=== PATIENT | female | born 1960 | race Caucasian/White ===

== ENCOUNTER 2017-04-09 03:13 | Inpatient (IN) ==
--- NOTE | 2017-04-07 14:53 | EKG Report ---
Test Performed on : 04/07/2017 2:06:53 PM Test Reason : PAT Blood Pressure : / mmHG Vent. Rate : 059 BPM Atrial Rate : 059 BPM P-R Int : 154 ms QRS Dur : 070 ms QT Int : 400 ms P-R-T Axes : 082 074 053 degrees QTc Int : 396 ms Sinus bradycardia. Otherwise normal ECG No previous ECGs available Confirmed by David Awan MD ([id number]) on 04/08/2017 3:18:50 PM
[2017-04-07 14:56] LABS: MANUAL DIFF NEEDED? NO
[2017-04-07 15:00] LABS: BASO% 1.3 % (0.0-0.8); EOS# 0.49 X1000 (0.0-0.7); EOS% 4.6 % (0.0-10.0); HEMATOCRIT 42.1 % (37.0-47.0); HEMOGLOBIN 14.6 g/dL (12.0-16.0); IMM GRAN# 0.02 X1000 (0.0-0.04); IMM GRAN% 0.2 % (0.0-0.5); LYMPH# 2.73 X1000 (1.2-3.4); LYMPH% 25.7 % (20.5-51.1); MCH 32.2 PG (27-31); MCHC 34.7 g/dL (33-37); MCV 92.7 FL (81-99); MONO# 1.09 X1000 (0.11-0.59); MONO% 10.3 % (1.7-9.3); MPV 9.5 FL (7.4-10.4); NEUT% 57.9 % (42.2-75.2); PLT 433 X1000 (130-400); RBC 4.54 XMIL (4.2-5.4)
[2017-04-07 15:29] LABS: AGAP 13; BUN 17 mg/dL (8-22); CALCIUM 9.4 mg/dL (8.8-10.2); CHLORIDE 101 mmol/L (98-107); COSMO 283; POTASSIUM 3.7 mmol/L (3.5-5.1); SODIUM 141 mmol/L (136-145); TCO2 27 mmol/L (25-35)
[2017-04-09] MEDS ORDERED: PEPCID ONE (11:22)
[2017-04-09] MEDS ORDERED: REGLAN ONE (11:22)
[2017-04-09] MEDS ORDERED: INVANZ 1 GM/NS 1 GM/50 ML IVPB ONE (11:23)
[2017-04-09] MEDS ORDERED: LR 1,000 ML ONE (11:23)
[2017-04-09] MEDS ORDERED: ENTEREG ONE (11:28)
[2017-04-09] MEDS ORDERED: SODIUM CHLORIDE 0.9% 10 ML ONE ×3 (12:13→15:39)
[2017-04-09] MEDS ORDERED: EXPAREL 1.3% ONE (12:13)
[2017-04-09] MEDS ORDERED: MARCAINE 0.25% PF ONE (12:15)
[2017-04-09] MEDS ORDERED: VERSED ONE ×2 (12:16→15:10)
[2017-04-09 13:56] LABS: URINE MICRO REVIEW NEEDED? NO; URINE SOURCE CATH
[2017-04-09 14:00] LABS: BILIRUBIN URINE NEGATIVE (NEGATIVE); BLOOD URINE NEGATIVE (NEGATIVE); COLOR YELLOW; GLUCOSE URINE NEGATIVE (NEGATIVE); LEUKOCYTES URINE NEGATIVE (NEGATIVE); NITRITE URINE NEGATIVE (NEGATIVE); PROTEIN URINE NEGATIVE (NEGATIVE); SP GRAVITY URINE 1.019; TURBIDITY URINE CLEAR (CLEAR); UROBILINOGEN URINE NORMAL (NORMAL)
[2017-04-09 14:02] LABS: UR EPITHELIAL CELLS <10 /HPF (<10); URINE BACTERIA NEGATIVE /HPF; URINE WBC <10 /HPF (<10)
[2017-04-09] MEDS ORDERED: NS 1,000 ML ONE (15:00)
[2017-04-09] MEDS ORDERED: FENTANYL ONE (15:09)
[2017-04-09] MEDS ORDERED: DIPRIVAN 1% ONE (15:10)
[2017-04-09] MEDS: MORPHINE ONE ×3 (15:19→15:38)
[2017-04-09] MEDS ORDERED: ZOFRAN ONE (15:39)
[2017-04-09] MEDS ORDERED: NORCURON ONE (15:39)
[2017-04-09] MEDS ORDERED: NEOSTIGMINE ONE (15:39)
[2017-04-09] MEDS ORDERED: ROBINUL ONE (15:39)
[2017-04-09] MEDS ORDERED: XYLOCAINE-MPF 2% ONE (15:39)
[2017-04-09] MEDS ORDERED: LR 2,000 ML ONE (15:40)
[2017-04-09] MEDS ORDERED: OFIRMEV 1000 MG/ISOTONIC SOLN 1,000 MG/100 ML BOTTLE ONE (15:40)
[2017-04-09] MEDS ORDERED: QUELICIN (DOSE) ONE (15:40)
[2017-04-09] MEDS ORDERED: DECADRON ONE (15:40)
[2017-04-09] MEDS: PHENERGAN ONE ×2 (15:49→16:09)
[2017-04-09] MEDS ORDERED: LR 500 ML ONE (15:50)
--- NOTE | 2017-04-09 16:32 | OPERATIVE NOTE ---
PROCEDURE DATE: 04/09/2017 PROCEDURE: Low anterior sigmoid colon resection. SURGEON: Del Chadwick MD SPECIAL WARFARE OPERATOR: MD Dr. Curtis Mckeon assisted in exposure, resection, and anastomosis. PREOPERATIVE DIAGNOSIS: Sigmoid stricture. POSTOPERATIVE DIAGNOSIS: Sigmoid stricture. FINDINGS: The sigmoid appeared to be kinked on itself, which is probably the cause of the stricture. DESCRIPTION OF PROCEDURE: Satisfactory general endotracheal anesthesia was achieved, the patient was placed in Yaya stirrups. The abdomen was prepped and draped in a sterile fashion. We made an incision at the umbilicus down to the pubis in the area of the old scar. We carried our incision through the midline fascia, entering the abdominal cavity. We palpated the area of the sigmoid and it appeared to be adhesed in an S-shape, which could be the source of the stricture. The uterus was missing. The ovaries were missing. We then placed our Bookwalter retractor and placed the patient in Trendelenburg, reflected the small bowel cephalad. We then used the electrocautery to incise the white line of Toldt down into the pelvis to the rectum. We did the same on the medial side. We incised the adhesion that was kinking the sigmoid and thereby straightening it to get out somewhat. We chose a place in the proximal sigmoid just above the pelvic brim that would come into the pelvis easily to the rectum. We cleaned off the colon there, stapled it with a KALE 60 mm blue cartridge. We went distally into the proximal rectum and cleaned off the colon at that point. We then used the LigaSure to divide the mesentery all the way to the sigmoid vessels. We clamped and divided the sigmoid vessels with Samara clamps and divided them and suture ligated the proximal vessels with 2-0 silk suture ligature. We then laid the sigmoid up onto the anterior abdominal wall and we were able to bring the proximal sigmoid down to the rectum to make this hand sewn anastomosis. We then placed 3-0 silks in a Lembert fashion in the posterior seromuscular layer. We then amputated the sigmoid. The rectum appeared to be wide open and no evidence of stricture formation was seen there. We then took off the staple line from the proximal colon as well and again, it spread open easily and without evidence of stricture. We then used a 3-0 Polysorb running locking stitch for the posterior layer and changed to a [place] stitch anteriorly. The final layer was then 3-0 silks in a Lembert fashion anteriorly, this thereby completed the 2 layered anastomosis. We rid ourselves of the contaminated instruments, changed gloves, and the sucker tip at this point, we irrigated out the pelvis. We then placed a couple of 3-0 silks from the mesentery to the retroperitoneum to close the hole behind the anastomosis. There was no tension on the anastomosis. Again, we irrigated it out. We then removed our laps, took our retractors out, allowed the small bowel to fall into the pelvis. We closed the peritoneum with a 2-0 chromic. We closed the fascia with a running #2 Prolene, irrigated out the subcutaneous tissue and closed the skin with mark. Sterile dressing was applied. She tolerated it well, was sent to the recovery room in satisfactory condition. cc: MD Nathaniel Morales MD
[2017-04-09] MEDS ORDERED: MORPHINE ONE (17:38)
[2017-04-09] MEDS ORDERED: ZOFRAN IV PRN (18:05)
[2017-04-09] MEDS: NS 1,000 ML IV SCH (18:35)
[2017-04-09] MEDS: OFIRMEV 1000 MG/ISOTONIC SOLN 1,000 MG/100 ML BOTTLE IV SCH (21:56)
[2017-04-09] MEDS: ENTEREG PO SCH (21:57)
[2017-04-09] MEDS: PERIDEX MT SCH (21:57)
[2017-04-09] MEDS: LOVENOX SUBQ SCH (21:57)
[2017-04-10] MEDS: BUPRENEX IV PRN ×4 (00:15→18:55)
[2017-04-10] MEDS: OFIRMEV 1000 MG/ISOTONIC SOLN 1,000 MG/100 ML BOTTLE IV SCH ×4 (02:35→21:51)
[2017-04-10] MEDS: NS 1,000 ML IV SCH ×3 (02:35→18:57)
[2017-04-10] MEDS: PRILOSEC PO SCH (06:13)
[2017-04-10 06:17] LABS: BASO% 0.1 % (0.0-0.8); HEMATOCRIT 41.2 % (37.0-47.0); HEMOGLOBIN 14.6 g/dL (12.0-16.0); IMM GRAN# 0.05 X1000 (0.0-0.04); IMM GRAN% 0.2 % (0.0-0.5); LYMPH# 1.23 X1000 (1.2-3.4); LYMPH% 5.4 % (20.5-51.1); MCH 32.3 PG (27-31); MCHC 35.4 g/dL (33-37); MCV 91.2 FL (81-99); MONO# 1.63 X1000 (0.11-0.59); MONO% 7.2 % (1.7-9.3); MPV 9.9 FL (7.4-10.4); NEUT% 87.1 % (42.2-75.2); PLT 443 X1000 (130-400); RBC 4.52 XMIL (4.2-5.4)
[2017-04-10 06:48] LABS: AGAP 16; BUN 14 mg/dL (8-22); CALCIUM 8.8 mg/dL (8.8-10.2); CHLORIDE 100 mmol/L (98-107); COSMO 275; SODIUM 137 mmol/L (136-145); TCO2 21 mmol/L (25-35)
[2017-04-10 07:47] LABS: MANUAL DIFF NEEDED? NO
[2017-04-10] MEDS: PERIDEX MT SCH ×2 (09:05→21:52)
[2017-04-10] MEDS: ENTEREG PO SCH ×2 (09:05→21:51)
[2017-04-10] MEDS ORDERED: PROTONIX IV ONE (17:58)
[2017-04-10] MEDS ORDERED: SODIUM CHLORIDE 0.9% INJ ONE (17:58)
[2017-04-10] MEDS: LOVENOX SUBQ SCH (21:52)
[2017-04-11] MEDS: BUPRENEX IV PRN (00:42)
[2017-04-11] MEDS: OFIRMEV 1000 MG/ISOTONIC SOLN 1,000 MG/100 ML BOTTLE IV SCH ×4 (01:24→20:30)
[2017-04-11] MEDS: NS 1,000 ML IV SCH ×2 (04:00→05:54)
[2017-04-11] MEDS: PRILOSEC PO SCH ×2 (05:54→06:25)
[2017-04-11] MEDS: ENTEREG PO SCH ×3 (07:51→20:31)
[2017-04-11] MEDS: PERIDEX MT SCH ×3 (07:52→20:31)
--- NOTE | 2017-04-11 10:04 | Diag Imaging Result Document ---
PROCEDURE NAME: ABDOMEN FLAT/UPRIGHT - 04/11/2017 FLAT AND UPRIGHT ABDOMEN: FINDINGS: There are surgical skin clips over the lower abdomen and pelvis in the midline. There is gas in the abdomen, presumably secondary to recent laparotomy. There is gas throughout the colon. The small bowel and stomach are not distended. Compared to 03/20/2017, the postsurgical changes were not previously present. There is more colonic gas than there was. IMPRESSION: 1. Possibility of mild ileus cannot be excluded. 2. No evidence of small bowel obstruction. 3. Postsurgical pneumoperitoneum.
[2017-04-11] MEDS ORDERED: NS 1,000 ML IV SCH (13:48)
[2017-04-11 14:30] LABS: MANUAL DIFF NEEDED? NO
[2017-04-11 14:39] LABS: BASO% 0.5 % (0.0-0.8); EOS% 0.8 % (0.0-10.0); HEMATOCRIT 34.3 % (37.0-47.0); HEMOGLOBIN 11.4 g/dL (12.0-16.0); IMM GRAN# 0.02 X1000 (0.0-0.04); IMM GRAN% 0.2 % (0.0-0.5); LYMPH# 2.91 X1000 (1.2-3.4); LYMPH% 22.1 % (20.5-51.1); MCH 31.6 PG (27-31); MCHC 33.2 g/dL (33-37); MONO# 1.42 X1000 (0.11-0.59); MONO% 10.8 % (1.7-9.3); MPV 9.6 FL (7.4-10.4); NEUT% 65.6 % (42.2-75.2); PLT 328 X1000 (130-400); RBC 3.61 XMIL (4.2-5.4)
[2017-04-11] MEDS: LOVENOX SUBQ SCH (20:31)
[2017-04-12] MEDS: OFIRMEV 1000 MG/ISOTONIC SOLN 1,000 MG/100 ML BOTTLE IV SCH ×4 (01:45→20:04)
[2017-04-12] MEDS: PERIDEX MT SCH ×2 (10:04→20:04)
--- NOTE | 2017-04-12 10:28 | PROGRESS NOTE ---
DATE: 04/12/2017 SUBJECTIVE: She feels well. She had a bowel movement. She is voiding. She is not requiring pain medicine. She is ambulating. OBJECTIVE: Vital Signs: She is afebrile. No tachycardia. Blood pressure 100/52. Abdomen: Her incisions are clean, dry, and intact. Her dressing is in place with minimal old-appearing serosanguineous drainage and nondistended and appropriately tender. PLAN: She has had return of bowel function. She seems to be tolerating her diet. We will continue this, monitor her pain today, and plan for her possibly home tomorrow. I have hep- locked, stopped her Entereg, and she is on prophylactic Lovenox. We will continue to follow along. cc: MD Del Lewis MD
[2017-04-12] MEDS: LOVENOX SUBQ SCH (20:04)
[2017-04-12] MEDS ORDERED: TUMS PO PRN (23:20)
[2017-04-13] MEDS: OFIRMEV 1000 MG/ISOTONIC SOLN 1,000 MG/100 ML BOTTLE IV SCH (02:18)
[2017-04-13] MEDS: PRILOSEC PO SCH ×2 (06:43→07:22)
[2017-04-13 08:28] VITALS: BP 148/83
--- NOTE | 2017-04-13 14:46 | PROGRESS NOTE ---
DATE: 04/13/2017 SUBJECTIVE: Feels well. Pain is controlled without narcotic pain medication. She is having bowel movements, voiding, tolerating a diet and ambulating without difficulty. OBJECTIVE: General: No fevers. Cardiac: No tachycardia. Abdomen: Soft, nontender, nondistended. Incision is clean, dry, and intact without erythema. ASSESSMENT: This is a 56-year-old female, status post low anterior resection. She is doing very well. Plan for her to go home today. We discussed signs and symptoms of postoperative complication, fevers, nausea, vomiting, worsening abdominal pain, redness of her incision. She will call if she develops any these. Otherwise, she will see Dr. Chadwick as scheduled in the next week for staple removal. I have given her a prescription for [place]. Colace. She takes MiraLAX at home and I have told her to continue this, and Zofran. She will continue taking her other home medications. cc: MD Del Lewis MD
--- NOTE | 2017-04-24 08:55 | DISCHARGE SUMMARY ---
ADMISSION DATE: 04/09/2017 DISCHARGE DATE: 04/13/2017 PRIMARY DISCHARGE DIAGNOSIS: Stricture in the colon secondary to diverticular disease. PRIMARY PROCEDURE: Sigmoid colon resection. HISTORY: This was a 56-year-old lady sent by Dr. Edward because of a stricture in her sigmoid colon felt to be due to diverticular disease. It was quite difficult to even pass a scope so she was referred for evaluation. Following her outpatient prep, she was admitted on the , underwent the lower anterior sigmoid colon resection on the . Postoperative course was rather unremarkable. She did undergo a tap block which helped provide pain relief. She complained about some chest discomfort and we checked cardiac enzymes which were okay. We put her on Protonix IV which helped relieve her symptoms. We removed her Yi on the second postoperative day, started her on clear liquids on the third postoperative day which she tolerated. By the , she was taking p.o. satisfactorily. Her bowels had moved. She was ambulatory. Her wound was fine. It was felt she could be discharged home. Dr. Wheeler discharged her with a prescription for [employer] and Colace. She will take MiraLAX at home as needed. She will return to the office in followup. cc: MD Nathaniel Morales MD
== END 2017-04-13 10:25 | disposition home or self-care (01) ==
LOC: SURHOLD 03:13 → 4N 17:40
PROVIDERS: ADMIT Surgery; ATTEND Surgery

== ENCOUNTER 2017-05-30 16:53 | Inpatient (IN) ==
[2017-05-30] MEDS ORDERED: NS 500 ML IV ONE (17:51)
[2017-05-30] MEDS ORDERED: ZOFRAN IV ONE (17:52)
--- NOTE | 2017-05-30 18:20 | PROVIDER DOCUMENTATION ---
HPI-Abdominal Pain/GI Problem - General Chief Complaint: Abdominal Pain Stated Complaint: N/D Time Seen by Provider: 05/30/17 17:19 Source: patient Allergies/Adverse Reactions: Patient Allergies Allergy/AdvReac Type Severity Reaction Status Date / Time Latex, Natural Rubber Allergy Unknown Verified 04/09/17 19:12 adhesive tape Allergy RASH Verified 04/07/17 13:45 Home Medications: Home Medication List Medication Instructions Recorded Confirmed Last Taken Type Ciprofloxacin HCl [Cipro] 500 mg PO BID 04/07/17 04/09/17 04/09/17 06:00 History Lactobacillus Acidophilus 1 each PO DAILY 04/07/17 04/09/17 04/07/17 23:00 History [Probiotic] Licorice,Deglycyrrhizinated 1 gm MC TID 04/07/17 04/09/17 04/08/17 07:00 History [Deglycyrrhizinated Licorice] Metronidazole [Flagyl] 250 mg PO TID 04/07/17 04/09/17 04/09/17 06:00 History Omeprazole [Omeprazole] 40 mg PO DAILY 04/07/17 04/09/17 04/08/17 08:00 History Polyethylene Glycol 3350 225 gm PO DAILY 04/07/17 04/09/17 04/07/17 07:00 History [Polyethylene Glycol 3350] - History of Present Illness-ABD Nature of Presenting Problems: PT C/O ABD PAIN AND ALTERNATING SMALL HARD STOOLS AND DIARRHEA STOOL FOR THE PAST 3 DAYS. PT HAS HX OF BOWEL RESECTION ON 04/09 WITHOUT COMPLICATIONS. ALSO C/ O NAUSEA AT PRESENT. Abdominal Pain Onset Location: reports: LLQ Pain Radiation: reports: no radiation Quality of Pain: reports: fullness, sharp Severity in ED: reports: moderate Onset/Duration: reports: 3 days ago Timing: reports: getting worse Activities at Onset: reports: none Exposure to sick contacts?: No Modifying Factors: improves with: nothing Associated Symptoms: reports: constipation, diarrhea, fever/chills, loss of appetite, nausea. denies: chest pain, diaphoresis, EENT symptoms, genitourinary problems, headaches, heartburn, rash, shortness of breath, swelling/mass in abdomen, vomiting Last BM: this afternoon Dark Stools Present?: reports: none noticed Rectal Bleeding: reports: none Rectal Pain: reports: known hemorrhoids Emesis Description: reports: none Bruising or Bleeding Gums?: No Similar Symptoms Previously?: No Recently seen or treated by another doctor?: No Review of Systems - Adult - REVIEW OF SYSTEMS - ADULT Constitutional: reports: chills. denies: fever, night sweats Eyes: reports: no symptoms reported Ears, Nose, Mouth & Throat: reports: no symptoms reported Cardiovascular: reports: no symptoms reported. denies: chest pain, syncope Respiratory: reports: no symptoms reported. denies: cough, dyspnea on exertion , shortness of breath Gastrointestinal: reports: abdominal pain, constipation, diarrhea, nausea. denies: hematemesis, rectal bleeding, vomiting Genitourinary: reports: no symptoms reported. denies: dysuria, discharge, flank pain Musculoskeletal: reports: no symptoms reported. denies: muscle aches, muscle weakness Integumentary: reports: no symptoms reported. denies: rash Neurological: reports: no symptoms reported. denies: dizziness/vertigo, headache/migraines, loss of balance, seizure, syncope Psychiatric: reports: no symptoms reported Endocrine: reports: no symptoms reported Hematologic/Lymphatic: reports: no symptoms reported Allergic/Immunologic: reports: no symptoms reported All Other Systems: Reviewed and Negative Past History - Adult - PAST MEDICAL HISTORY-ADULT Review of Records: reports: Old Records Reviewed, Nursing Assessment Review, Medications Reviewed, Social history reviewed & non-contributory. Major Childhood Illnesses: reports: history unknown Cardiovascular: reports: denies history Respiratory: reports: denies history Gastrointestinal: reports: colitis, diverticulosis, GERD, polyps (barretts esophagus, gastritis), other Obstetrical/Gynecological: reports: other (s/p hysterectomy) Genitourinary: reports: kidney stones Musculoskeletal: reports: denies history Neurological: reports: headaches/migraines Psychiatric: reports: denies history Endocrine/Immune: reports: denies history Other Conditions: reports: denies history - PRIOR SURGERIES/PROCEDURES Surgical/Procedure History: reports: colonoscopy, hysterectomy, , other (lithotripsy, surgeries for crohn's disease.) - IMMUNIZATION STATUS Childhood Immunizations: See Nurse Assessment Flu Vaccine: See Nurse Assessment - SOCIAL HISTORY Smoking: cigarettes Provider spent 3-5 mins advising pt. on dangers of tobacco.: Discussed manners to quit use, and f/u contacts for add'l counseling. Physical Exam-General - PHYSICAL EXAM-ADULT Initial Vital Signs Reviewed: Yes - CONSTITUTIONAL General Appearance: appears well, alert, no apparent distress - EYES Eyes: PERRL/EOMI - HEAD, EARS, NOSE, MOUTH & THROAT HENMT: normocephalic/atraumatic, moist mucous membranes, normal ENT inspection - NECK Neck: non-tender, full range of motion, supple - RESPIRATORY Respiratory: chest non-tender, lungs clear, normal breath sounds. negative: respiratory distress - CARDIOVASCULAR Cardiovascular: normal peripheral pulses, regular rate, rhythm, no edema, no JVD - GASTROINTESTINAL (ABDOMEN) Abdominal Exam: normal bowel sounds, soft, no organomegaly, no pulsatile mass, tenderness (LLQ). negative: abdominal bruit, rigid, rebound, hernia, mass - LYMPHATIC Lymphatic: no adenopathy - MUSCULOSKELETAL Back Exam: normal inspection, no CVA tenderness, no vertebral tenderness Extremity: normal range of motion, non-tender - SKIN Integumentary: normal color, normal turgor, warm/dry. negative: diaphoresis, ecchymosis, jaundice, purpura, rash - NEUROLOGIC Neurologic: grossly normal, no motor/sensory deficits. negative: aphasia, motor weakness - PSYCHIATRIC Psych/Mental Status: normal mood/affect, oriented x 3 Progress - PLAN OF CARE/RESULTS Progress/Plan/Lab Results: Vital Signs - 8 hr 05/30/17 17:01 Temperature 98.1 F Pulse Rate 82 Respiratory Rate 18 Blood Pressure 135/88 O2 Sat by Pulse Oximetry 98 Orders Category Date Time Status Saline Loc NOW Care 05/30/17 17:51 Active NPO Diet 05/30/17 17:[address] ABD/PELVIS W/ IV CONT ONLY [CT] Stat Exams 05/30/17 18:14 Ordered AMYLASE [CHEM] Stat Lab 05/30/17 17:44 Ordered C DIFF TOXIN PL Stat Lab 05/30/17 17:50 Ordered CBC WITH ELECTRONIC DIFF [HEME] Stat Lab 05/30/17 17:44 Ordered COMPREHENSIVE METABOLIC PANEL [CHEM] Stat Lab 05/30/17 17:44 Ordered LIPASE [CHEM] Stat Lab 05/30/17 17:44 Ordered OCCULT BLOOD SCREEN STOOL PL Stat Lab 05/30/17 17:50 Uncollected STOOL CULTURE [RM] Stat Lab 05/30/17 17:[address] W/POSS RFLX CULT [URINALYSIS] Stat Lab 05/30/17 18:15 Ordered WBC STOOL [STOOL] Stat Lab 05/30/17 17:50 Uncollected 0.9% Sodium Chloride Inj [Ns] 500 ml Med 05/30/17 17:51 Active IV 999 mls/hr Ondansetron [Zofran] Med 05/30/17 17:52 Discontinued 4 mg IV NOW ONE Result Diagrams: 05/30/17 17:55 05/30/17 17:55 - REASSESSMENT Reassessment #1 Time Reassessed: 20:04 (DR. CHAU REVIEWED THE PT'S LABS AND IMAGING AND ASSUMED CARE OF PATIENT. PT CONDITION UNCHANGE AT THIS TIME.) Status: unchanged - CT/MRI 1 CT Study: Abdomen Impression: Abnormal (distal colitis posssible stricture) - CHANGE OF SHIFT REPORT (ED Provider) Report Given and Care Transferred to:: DR. CHAU Time of Transfer: 20:05 Items Pending: CT/MRI Results Departure - Departure Date of Disposition Decision: 05/30/17 Time of Disposition Decision: 20:28 DIAGNOSIS: Colitis Disposition: ADMITTED INPATIENT 09 Certified Medical Emergency: Emergent Condition: Fair Referrals and Follow-Ups: Deon Lane MD [Primary Care Provider] - Work Excuses: Return to School/Parent Work - Critical Care Note This patient required my direct & personal management of CC.: No
[2017-05-30 18:30] LABS: MANUAL DIFF NEEDED? NO
[2017-05-30 18:33] LABS: BASO% 0.3 % (0.0-0.8); EOS# 0.04 X1000 (0.0-0.7); EOS% 0.3 % (0.0-10.0); HEMATOCRIT 39.5 % (37.0-47.0); HEMOGLOBIN 13.5 g/dL (12.0-16.0); IMM GRAN# 0.02 X1000 (0.0-0.04); IMM GRAN% 0.1 % (0.0-0.5); LYMPH# 1.63 X1000 (1.2-3.4); LYMPH% 10.9 % (20.5-51.1); MCH 31.3 PG (27-31); MCHC 34.2 g/dL (33-37); MCV 91.4 FL (81-99); MONO# 1.72 X1000 (0.11-0.59); MONO% 11.5 % (1.7-9.3); MPV 9.6 FL (7.4-10.4); NEUT% 76.9 % (42.2-75.2); PLT 361 X1000 (130-400); RBC 4.32 XMIL (4.2-5.4)
[2017-05-30 18:49] LABS: URINE CULTURE PL NEEDED? NO
[2017-05-30 19:02] LABS: AGAP 15; ALBUMIN 4.3 g/dL (3.5-5.0); ALKALINE PHOSPHATASE 93 U/L (32-104); AMYLASE 42 U/L (20-200); BUN 9 mg/dL (8-22); CALCIUM 9.6 mg/dL (8.8-10.2); CHLORIDE 100 mmol/L (98-107); COSMO 279; GOT 14 U/L (10-30); GPT 11 U/L (10-36); LIPASE 42 U/L (13-60); POTASSIUM 3.2 mmol/L (3.5-5.1); SODIUM 140 mmol/L (136-145); TCO2 25 mmol/L (25-35)
[2017-05-30 19:03] LABS: BILIRUBIN URINE NEGATIVE (NEGATIVE); BLOOD URINE 1+ (NEGATIVE); CLARITY CLEAR (CLEAR); COLOR YELLOW; GLUCOSE URINE NEGATIVE (NEGATIVE); LEUKOCYTES URINE NEGATIVE (NEGATIVE); NITRITE URINE NEGATIVE (NEGATIVE); PROTEIN URINE NEGATIVE (NEGATIVE); SP GRAVITY URINE 1.005; UROBILINOGEN URINE NORMAL
[2017-05-30 19:24] LABS: URINE CAST NONE SEEN /LPF; URINE CRYSTAL NONE SEEN /HPF; URINE EPITHELIAL CELLS <10 /HPF (<10); URINE RBC <10 /HPF (<10); URINE SOURCE CLEAN CATCH; URINE WBC <10 /HPF (<10)
--- NOTE | 2017-05-30 19:59 | Diag Imaging Result Doc PS360 ---
EXAM: CT ABD/PELVIS W/ IV CONT ONLY HISTORY: ABD PAIN, POSS SBO, POST OP COLON RESECT TECHNIQUE: CT of the abdomen with intravenous contrast COMMENT: There is fibrotic change in the posterior costophrenic sulci bilaterally which was also present on 03/20/2017. The liver spleen adrenal glands and pancreas are stable in appearance. The gallbladder is apparently clear. The kidneys are without evidence of hydronephrosis or mass. There is gas in the colon. The small bowel is not distended. There is some thickening of the wall of the descending colon particularly distally. CT of the pelvis with intravenous contrast: Since the previous study of 03/20/2016, there has been resection of a fair amount of the sigmoid colon presumably for diverticulitis. There is some gas in the rectum. The distal portion of the colon and proximal rectum are thickened in appearance particularly around image 173. There may be a stricture in this location. There is no evidence of free fluid or abscess. IMPRESSION: Distal colitis with possible stricture. Electronically signed by Earnest Carvalho 05/30/2017 7:57 PM
[2017-05-30] MEDS ORDERED: MORPHINE IV ONE (20:27)
[2017-05-30] MEDS ORDERED: NS 1,000 ML IV ONE (20:38)
[2017-05-30] MEDS ORDERED: ZOFRAN IV PRN (20:38)
[2017-05-30] MEDS ORDERED: TYLENOL PO PRN (22:43)
[2017-05-30] MEDS ORDERED: LEVAQUIN 500 MG/D5W 500 MG/100 ML IVPB IV SCH (22:45)
[2017-05-30] MEDS ORDERED: SODIUM CHLORIDE 0.9% INJ SCH (23:00)
[2017-05-30] MEDS ORDERED: KLOR-CON PO ONE (23:19)
[2017-05-30] MEDS ORDERED: NS 1,000 ML IV SCH (23:42)
[2017-05-31] MEDS: MORPHINE IV PRN ×5 (00:36→22:58)
[2017-05-31] MEDS: FLAGYL 500 MG/NS 500 MG/100 ML IVPB IV SCH ×4 (01:47→19:59)
[2017-05-31] MEDS: POTASSIUM CHLORIDE 20 MEQ/SWI 20 MEQ/100 ML IVPB IV SCH ×2 (02:57→05:21)
[2017-05-31 06:01] LABS: MANUAL DIFF NEEDED? NO
[2017-05-31 06:02] LABS: BASO% 0.4 % (0.0-0.8); EOS# 0.16 X1000 (0.0-0.7); EOS% 0.9 % (0.0-10.0); HEMATOCRIT 37.2 % (37.0-47.0); HEMOGLOBIN 12.8 g/dL (12.0-16.0); IMM GRAN# 0.04 X1000 (0.0-0.04); IMM GRAN% 0.2 % (0.0-0.5); LYMPH# 1.72 X1000 (1.2-3.4); MCH 32.2 PG (27-31); MCHC 34.4 g/dL (33-37); MCV 93.5 FL (81-99); MONO# 2.23 X1000 (0.11-0.59); MPV 9.8 FL (7.4-10.4); NEUT% 75.5 % (42.2-75.2); PLT 348 X1000 (130-400); RBC 3.98 XMIL (4.2-5.4)
--- NOTE | 2017-05-31 06:15 | HISTORY AND PHYSICAL ---
CHIEF COMPLAINT: Abdominal Pain with Diarrhea HISTORY OF PRESENT ILLNESS: Mrs. Milagros Daniel has a past medical history of GERD, Crohn's, and recent H. pylori infection presented first to [place] ED with left lower quadrant abdominal pain that she states has been burning for the last 2-3 days. She has had a decreased appetite and diarrhea with 2-3 episodes per day. She recently had a sigmoid colon resection back on April 09 that was performed by Dr. Chadwick. She completed her followup appointments with him but states that when she went back to work this week is when her abdominal pain really started x 5 days. She says that she completed amoxicillin and erythromycin antibiotics x20 days and had diarrhea the entire time. Denied any foul smell. Reported that it was black and tarry until yesterday, it appeared white and peace in her stool. She also complains of fever and chills and body aches for the last week. While she was in the ER over at [place], they performed a CT of the abdomen and pelvis which revealed possible distal colitis with possible stricture and she was sent over here for evaluation by the GI service. PAST MEDICAL HISTORY: 1. GERD 2. Crohn's. 3. H. pylori. 4. Kidney stones. 5. Diverticulitis. 6. Carpal tunnel syndrome. SURGICAL HISTORY: 1. Recent sigmoid colon resection in March of this year. 2. . 3. Hysterectomy. 4. Urethral stent. 5. Lithotripsy. SOCIAL HISTORY: The patient reports that she smokes less than half a pack of cigarettes a day. Reports occasional alcohol use, about 1 glass of wine a day. Denies any recreational drug use. FAMILY HISTORY: Mother - cancer diabetes and CAD. Father - hypertension. REVIEW OF SYSTEMS: Ten point review of systems was completed except as what is mentioned above in the HPI. ALLERGIES: Latex, natural rubber, adhesive tape. HOME MEDICATIONS: 1. Tylenol 650 p.r.n. q.6 hours for pain. 2. Lactobacillus 1 tablet p.o. daily. 3. Protonix 40 mg p.o. q.12 hours. PHYSICAL EXAMINATION: VITAL SIGNS: Temperature 98.2 degrees, heart rate 59, respirations 20, blood pressure 132/74, O2 saturation 98 on room air. GENERAL: Ms. Daniel is a pleasant 56-year-old female, who could answer questions appropriately. HEENT: Atraumatic, normocephalic. PERRL. EOMs intact. Mucous membranes dry. NECK: Supple. Trachea midline. No JVD noted. No bruits. CV: Slightly bradycardic at 59. S1-S2 auscultated. No murmurs, gallops, or rubs heard. RESPIRATORY: Lung sounds clear and equal throughout. Respirations nonlabored. No accessory muscle use noted. GI: Abdomen is soft, slightly tender to palpation in the left lower quadrant. She has hyperactive bowel sounds in all 4 quadrants. No abdominal bruit auscultated. NEURO: CN 2-12 intact. Patient was alert oriented x4. MUSCULOSKELETAL: The patient is ambulatory with equal muscle strength throughout. EXTREMITIES: The patient has no clubbing, cyanosis or edema noted. Plus 2 pulses throughout all 4 extremities. SKIN: Warm, dry, intact. No rashes or bruises or diaphoresis noted. LABS: White blood cell count 15, hemoglobin 13.5, hematocrit 39.5, platelets 361,000. Sodium 140, potassium 3.2, chloride 100, BUN 9, creatinine 0.6, glucose 117. IMAGING: CT of the abdomen/pelvis with IV contrast revealed distal colitis with possible stricture. ASSESSMENT AND PLAN: 1. Colitis with leukocytosis. Patient is afebrile. Her white cell count is 15. Blood cultures have been obtained. Flagyl and Levaquin ordered. Stool cultures also ordered. Gastroenterology has been consulted. Morphine for pain management. 2. Possible stricture in the distal colon and proximal rectum, status post recent sigmoid colon resection by Dr. Chadwick. We have reconsulted for further recommendations. 3. Anorexia and dehydration secondary to nausea, vomiting and diarrhea. IV hydration normal saline at 100. Clear liquid diet. Will advance diet once the consults have been completed. Antiemetics have been ordered for nausea. 4. Hyperkalemia. Potassium is 3.2. We have ordered 20 mEq p.o. We will re- evaluate in the morning. 5. Helicobacter pylori. The patient is followed by Dr. Edward. Her treatment regimen has been completed and she states she has a followup appointment July 01 to be re- evaluated for this. 6. Gastroesophageal reflux disease. Continue Protonix p.o. b.i.d. Continue probiotic regimen. 7. Mild hyperglycemia. The patient's serum glucose is 117. Hemoglobin A1c has been ordered and we will re-evaluate in the morning. 8. Diverticulosis. Now, status post sigmoid colon resection. See #2 on Assessment and Plan. Dictated by JASON Mayo for Joel Perea MD cc: JASON Mayo MD Robert C. Walker, MD Manish Arora, MD pt examined, will treat for infectious colitis, r/ro c diff, but will need surgical evaluation APENOT MTDD
[2017-05-31 06:31] LABS: INR 1.04; PTT 25.4 Seconds (22.0-36.0)
[2017-05-31 06:32] LABS: HEMOGLOBIN A1C 5.3 % (4.8-6.0)
[2017-05-31 06:35] LABS: AGAP 11; ALBUMIN 3.7 g/dL (3.5-5.0); ALKALINE PHOSPHATASE 76 U/L (32-104); BUN 8 mg/dL (8-22); CALCIUM 8.7 mg/dL (8.8-10.2); CHLORIDE 104 mmol/L (98-107); COSMO 278; GOT 12 U/L (10-30); GPT 9 U/L (10-36); MAGNESIUM 1.6 mg/dL (1.5-2.7); SODIUM 140 mmol/L (136-145); TCO2 25 mmol/L (25-35); TOTAL PROTEIN 5.9 g/dL (6.3-8.3)
[2017-05-31] MEDS ORDERED: PROTONIX IV SCH (09:00)
[2017-05-31] MEDS: CULTURELLE PO SCH (11:11)
[2017-05-31] MEDS: PROTONIX PO SCH ×2 (11:11→19:59)
[2017-05-31] MEDS: NS 1,000 ML IV SCH ×2 (13:47→22:55)
--- NOTE | 2017-05-31 14:18 | CONSULTATION ---
DATE OF CONSULTATION: 05/31/2017 CHIEF COMPLAINT: Abdominal pain. HISTORY: This is a 56-year-old lady who is almost 2 months after a sigmoid resection for stricture and old diverticular disease. She had done well until this past week. She states the onset of burning discomfort. She also reports diarrhea. She has been on treatment for Helicobacter pylori by Dr. Edward. Because of her symptoms. She has sought medical attention. CT scan suggests some possible thickening of the rectum or distal colon. PAST MEDICAL HISTORY: Pertinent for gastroesophageal reflux, a possible history of Crohn's, Helicobacter pylori, diverticular disease, history of some kidney stones, and carpel tunnel. She has had this recent sigmoid resection. She has had a hysterectomy, lithotripsy, ureteral stent, and a section in the past. She is employed. She does smoke daily. She does drink wine daily. FAMILY HISTORY: Noncontributory. REVIEW OF SYSTEMS: As noted above. MEDICATIONS AT HOME: Include lactobacillus, Protonix, and she has recently been on erythromycin and Amoxil. PHYSICAL EXAMINATION: Vital Signs: She is afebrile. Heart rate 53. Blood pressure 126/69. Respiratory rate 18. Eighteen. Lungs: Bilateral breath sounds. Heart: Regular rhythm. Abdomen: Flat, soft, and not particularly tender. Her wound is healing satisfactorily. ASSESSMENT AND PLAN: Abdominal pain of uncertain etiology. The CT scan suggests some thickening, possible colitis. Will ask Gastroenterology to evaluate her more fully. I will follow along, but I have no other recommendations at this time. cc: Del Chadwick MD
--- NOTE | 2017-05-31 14:22 | PROGRESS NOTE ---
DATE: 05/31/2017 SUBJECTIVE: The patient states that her abdominal pain has improved. She denies having any nausea at this time. OBJECTIVE: Vital Signs: Temperature 97 degrees, blood pressure 129/71, heart rate 62, respirations 18, O2 saturations 98% on room air. General: This is an elderly female, lying in bed, in no acute distress. Head: Normocephalic, atraumatic. Heart: S1, S2. Normal. Regular rate and rhythm. Lungs: Clear to auscultation bilaterally. No wheezing. No rales. No rhonchi. Abdomen: Positive bowel sounds. Soft. Diffuse tenderness. Extremities: No edema. No cyanosis. No calf tenderness. Neurologic: The patient is alert and oriented x3. LABS: White blood cell count 17, hemoglobin 12, hematocrit 37, platelets 348,000. Sodium 140, potassium 4, chloride 104, CO2 25, BUN 8, creatinine 0.7, glucose 101, calcium 8.7, AST 12, ALT 9. ASSESSMENT AND PLAN: 1. colitis with colonic stricture. We will continue on IV antibiotic therapy. Gastroenterology and General Surgery have been consulted for further recommendations. 2. Leukocytosis. Blood cultures and stool cultures are pending. We will continue on IV antibiotic therapy and monitor the trend closely. 3. Deep vein thrombosis prophylaxis. Will start the patient on Lovenox. cc: Milagros Conway MD
[2017-05-31] MEDS: LOVENOX SUBQ SCH (14:24)
--- NOTE | 2017-05-31 16:20 | CONSULTATION ---
DATE OF CONSULTATION: 05/31/2017 REASON FOR CONSULTATION: Colitis, history of recent colon resection. HISTORY OF PRESENT ILLNESS: This is a 56-year-old white female who reports onset of symptoms over the last several weeks. She had a colon resection related to a stricture by Dr. Chadwick in March. She states she went back to work on Friday and started having abdominal pain. By , she was having abdominal pain and diarrhea, and was unable to eat. Her primary swatcher is Dr. Edward. She had called their office and they advised her to take probiotics. She states she was treated recently for Helicobacter pylori, so she has been on several different antibiotics since her colon resection in March. She denies bright red blood in the stool, but reported a dark stool yesterday. She had reported fever and chills. A CT scan showed possible distal colitis with possible stricture. PAST MEDICAL HISTORY: GERD. Reports a history of Crohn's, Helicobacter pylori, kidney stones, diverticulitis, and carpal tunnel syndrome. PAST SURGICAL HISTORY: Recent sigmoid colon resection in March by Dr. Chadwick. section, hysterectomy, urethral stent, and lithotripsy. ALLERGIES: Latex and tape, causing a rash. HOME MEDICATIONS: MiraLAX daily. Omeprazole 40 mg daily. Flagyl 250 three times a day. Probiotic daily. Cipro twice daily. SOCIAL HISTORY: Smokes less than a half a pack of cigarettes daily. Occasional alcohol use. FAMILY HISTORY: Mother had cancer, diabetes, and coronary artery disease. Father had hypertension. REVIEW OF SYSTEMS: Per HPI. PHYSICAL EXAMINATION: Vital Signs: Temperature 97.4 degrees, pulse 62, respirations 18, blood pressure 129/71. General: Patient is awake and alert, in no acute distress. HEENT: Normocephalic, atraumatic. Pupils equal, round, and reactive to light. Sclerae nonicteric. Respiratory: Lungs sound clear bilaterally. Cardiovascular: Regular rate and rhythm. Abdomen: Soft. Tenderness with palpation. Positive bowel sounds. Extremities: No lower extremity edema noted. Pedal pulses present bilaterally. DIAGNOSTIC RESULTS: Laboratory: Hematology - White count 17.21, hemoglobin 12.8, hematocrit 37.2, MCV 93.5, and platelets 348,000. Chemistry - Sodium 140, potassium 4.0, chloride 104, CO2 of 25, BUN 8, creatinine 0.7, glucose 101, total bilirubin 0.20, AST 12, ALT 9, alkaline phosphatase 76, amylase 42, lipase 42. ASSESSMENT AND PLAN: 1. Abdominal pain. 2. Colitis. 3. Recent colon resection. 4. Helicobacter pylori with recent antibiotic therapy. 5. Gastroesophageal reflux disease. PLAN: Continue supportive care. Continue Flagyl, but stop Levaquin for now. Waiting on stool study results. Possibility of Clostridium difficile colitis related to recent antibiotic use. We will continue to follow. Continue IV fluids and p.r.n. medication as needed. Further plans will be made according to her progress. I have discussed this case with Dr. Roach. Thank you for this consultation. Dictated by JASON Hensley for Brennon Roach MD cc: JASON Judd MD
[2017-05-31] MEDS: LEVAQUIN 750 MG/D5W 750 MG/150 ML IVPB IV SCH (22:55)
[2017-06-01] MEDS: FLAGYL 500 MG/NS 500 MG/100 ML IVPB IV SCH ×4 (01:08→20:07)
[2017-06-01 06:29] LABS: HEMATOCRIT 35.8 % (37.0-47.0); HEMOGLOBIN 12.1 g/dL (12.0-16.0); MCH 32.2 PG (27-31); MCHC 33.8 g/dL (33-37); MCV 95.2 FL (81-99); MPV 9.7 FL (7.4-10.4); RBC 3.76 XMIL (4.2-5.4)
[2017-06-01 06:58] LABS: AGAP 10; BUN 6 mg/dL (8-22); CALCIUM 8.6 mg/dL (8.8-10.2); CHLORIDE 103 mmol/L (98-107); COSMO 272; POTASSIUM 3.5 mmol/L (3.5-5.1); SODIUM 137 mmol/L (136-145); TCO2 24 mmol/L (25-35)
[2017-06-01] MEDS: PROTONIX PO SCH ×2 (07:42→09:07)
[2017-06-01] MEDS: CULTURELLE PO SCH ×2 (07:42→09:07)
--- NOTE | 2017-06-01 09:58 | Diag Imaging Result Doc PS360 ---
EXAM: FLAT/UPRIGHT ABD/1 VIEW CHEST HISTORY: abdominal pain TECHNIQUE: Flat and upright abdomen with PA chest COMMENT: There is gas in the colon. There is no evidence of small bowel dilatation or gastric distention. There is no evidence organomegaly or mass. There is a phlebolith in the inferior left pelvis. The appearance of the chest has not changed significantly since 03/20/2017. IMPRESSION: Nonspecific abdomen. No evidence of obstruction. Electronically signed by Earnest Carvalho 06/01/2017 9:56 AM
[2017-06-01] MEDS: NS 1,000 ML IV SCH (13:27)
[2017-06-01] MEDS: LOVENOX SUBQ SCH (13:28)
[2017-06-01] MEDS: BENTYL PO SCH (15:57)
--- NOTE | 2017-06-01 17:17 | PROGRESS NOTE ---
DATE: 06/01/2017 SUBJECTIVE: The patient is resting comfortably in bed. She states that she initially had diarrhea earlier last night, but has since gotten better. OBJECTIVE: Vital Signs: Temperature 98.6 degrees, blood pressure 133/69, heart rate 58, respirations 18, O2 saturations 98% on room air. General: This is an elderly female sitting up in bed, in no acute distress. Head: Normocephalic, atraumatic. Heart: S1, S2. Normal. Regular rate and rhythm. Lungs: Clear to auscultation bilaterally. No wheezing. No rales. No rhonchi. Abdomen: Positive bowel sounds. Soft, nontender, nondistended. Extremities: No edema. No cyanosis. No calf tenderness. Neurological: Patient is alert and oriented x3. LABORATORY: White blood cell count 9.1, hemoglobin 12, hematocrit 35, platelets 320,000. Sodium 137, potassium 3.5, chloride 103, CO2 24, BUN 6, creatinine 0.6, glucose 107. ASSESSMENT AND PLAN: 1. Colitis with colonic narrowing. Continue with IV antibiotic therapy. Further management as per the longitudinal float operator. 2. Leukocytosis, resolved. 3. Deep vein thrombosis prophylaxis. Continue on Lovenox. cc: Milagros Conway MD
--- NOTE | 2017-06-01 17:28 | PROGRESS NOTE ---
DATE: 06/01/2017 SUBJECTIVE: Patient complains of postprandial abdominal pain and abdominal cramps, especially on the left side of the umbilicus. She complains of burning discomfort there. She has had some loose bowel movement especially after eating. She had only eaten some pudding. She denies any fever or chills now and has not had any dysuria, polyuria, or hematuria. Labs reviewed showed improvement in her white count which is 9.15 now, hemoglobin is over 12.1, hematocrit 35.8. BMP is normal. Abdominal x-ray done today was unremarkable. IMPRESSION: Abdominal pain and diarrhea with abnormal CT scan suggestive of possible colitis. Her leukocytosis has improved. I have recommended to continue antibiotic for now. I will switch her PPI from Protonix IV to Prilosec 20 mg p.o. every day. I will start her on Bentyl 10 mg p.o. t.i.d. for abdominal pain and cramps and continue to advance her diet slowly and will follow. cc: Brennon Roach MD
[2017-06-01] MEDS: MORPHINE IV PRN ×2 (17:32→20:08)
[2017-06-01] MEDS: LEVAQUIN 750 MG/D5W 750 MG/150 ML IVPB IV SCH (21:27)
[2017-06-02] MEDS: FLAGYL 500 MG/NS 500 MG/100 ML IVPB IV SCH ×2 (01:30→09:29)
[2017-06-02] MEDS: BENTYL PO SCH ×2 (06:06→11:19)
[2017-06-02] MEDS: NS 1,000 ML IV SCH (06:54)
[2017-06-02 06:59] LABS: AGAP 15; BUN 6 mg/dL (8-22); CALCIUM 8.7 mg/dL (8.8-10.2); CHLORIDE 104 mmol/L (98-107); COSMO 282; POTASSIUM 3.2 mmol/L (3.5-5.1); SODIUM 143 mmol/L (136-145); TCO2 24 mmol/L (25-35)
[2017-06-02] MEDS ORDERED: PRILOSEC PO SCH (07:00)
[2017-06-02 07:10] LABS: BASO% 0.9 % (0.0-0.8); EOS# 0.09 X1000 (0.0-0.7); EOS% 1.1 % (0.0-10.0); HEMATOCRIT 35.5 % (37.0-47.0); HEMOGLOBIN 12.2 g/dL (12.0-16.0); IMM GRAN# 0.02 X1000 (0.0-0.04); IMM GRAN% 0.3 % (0.0-0.5); LYMPH# 1.57 X1000 (1.2-3.4); LYMPH% 19.7 % (20.5-51.1); MANUAL DIFF NEEDED? YES; MCH 31.6 PG (27-31); MCHC 34.4 g/dL (33-37); MONO# 1.87 X1000 (0.11-0.59); MONO% 23.5 % (1.7-9.3); MPV 9.8 FL (7.4-10.4); NEUT% 54.5 % (42.2-75.2); PLT 357 X1000 (130-400); RBC 3.86 XMIL (4.2-5.4)
[2017-06-02] MEDS ORDERED: KLOR-CON PO ONE (07:17)
[2017-06-02 07:28] VITALS: BP 117/64
[2017-06-02 07:41] LABS: EOS 2 % (1-10); LYMPHS 32 % (21-51); MONO 17 % (1-9)
[2017-06-02] MEDS: CULTURELLE PO SCH (09:29)
[2017-06-02] MEDS ORDERED: MAGNESIUM SULFATE 2 GM/S.W.I. 2 GM/50 ML IVPB IV ONE (12:52)
--- NOTE | 2017-06-02 13:47 | PROGRESS NOTE ---
DATE: 06/02/2017 SUBJECTIVE: Patient states she is feeling better. Her abdominal pain has improved. She was able to tolerate her breakfast this morning. OBJECTIVE: Vital Signs: Temperature 97.8 degrees, pulse 68, respirations 20, blood pressure 117/64. LABORATORY: Hematology: White count 7.97, hemoglobin 12.7, hematocrit 35.5, MCV 92.0, platelets 357,000. Chemistry: Sodium 143, potassium 3.2, chloride 104, CO2 24, BUN 6, creatinine 0.6, glucose 89. ASSESSMENT: 1. Colitis, improving. 2. Leukocytosis, resolved. PLAN: Continue symptomatic treatment. Supportive care. As far as GI is concerned, she can be discharged. Will need outpatient antibiotic treatment. We will continue to follow during her hospital course. Dictated by JASON Hensley for Brennon Roach MD cc: JASON Judd MD
--- NOTE | 2017-06-02 21:07 | DISCHARGE SUMMARY ---
ADMISSION DATE: 05/30/2017 DISCHARGE DATE: 06/02/2017 FINAL DISCHARGE DIAGNOSES: 1. Colitis. 2. Leukocytosis. CONSULTATIONS REQUESTED DURING THIS HOSPITAL STAY: 1. GI consultation with Dr. Roach. 2. Surgery consultation with Dr. Chadwick. IMAGING PERFORMED DURING THIS HOSPITAL STAY: CT of the abdomen and pelvis performed on 05/30/2017 that revealed distal colitis with possible stricture. HOSPITAL COURSE: Ms. Daniel is a 56-year-old female who presented to the ER with abdominal pain, nausea, vomiting and diarrhea. While in the ER, a CT of the abdomen and pelvis was done that revealed distal colitis with possible stricture. The patient was admitted to the Hospitalist Service and GI was consulted. The patient was started on IV Flagyl and IV Levaquin, and placed on bowel rest along with IV fluids. Slowly over the course of the hospitalization the patient's abdominal complaints improved. The patient was also seen by General Surgery who recommended that GI continue the workup. The patient's diet was slowly advanced. The patient was able to tolerate the diet without any difficulty. The patient was ultimately cleared for discharge home on 06/02/2017. DISCHARGE MEDICATIONS: 1. Flagyl 500 mg p.o. every 6 hours x7 days. 2. Levaquin 500 mg p.o. daily x7 days. 3. Lactobacillus 1 tab oral daily. 4. MiraLAX 1 packet oral daily. 5. Omeprazole 40 mg p.o. daily. DISCHARGE DIET: Harvey diet. ACTIVITY: As tolerated. FOLLOWUP INSTRUCTIONS: The patient will need to follow up with Dr. Edward in 1 week. cc: Milagros Conway MD
== END 2017-06-02 15:27 | disposition home or self-care (01) ==
LOC: P.ED 16:53 → 4N 21:15 → SUATTDRO 21:30
PROVIDERS: ATTEND Internal Medicine